=== PATIENT | male | born 1985 | race Caucasian/White ===

== ENCOUNTER 2016-09-19 17:13 | Emergency (ER) | payer SELFPAY ==
[2016-09-19] MEDS ORDERED: Sodium Chloride 0.9% 2.5 ML Syringe FLUSH PRN (17:42)
[2016-09-19] MEDS ORDERED: Ketorolac 30 MG/ML SDV IVPUSH ONE (17:42)
[2016-09-19] MEDS ORDERED: Sodium Chloride 0.9% 10 ML Syringe FLUSH PRN (17:42)
[2016-09-19] MEDS ORDERED: Ondansetron 4 MG/2 ML SDV IVPUSH ONE (17:42)
[2016-09-19] MEDS ORDERED: Sodium Chloride 0.9% 1,000 ML IV SCH ×2 (18:00)
[2016-09-19 18:18] LABS: CHLORIDE,CL 103 mmol/L (98-110); SODIUM,NA 137 mmol/L (136-146)
[2016-09-19] MEDS ORDERED: fentaNYL 100 MCG/2 ML SDV IVPUSH ONE (18:23)
--- NOTE | 2016-09-19 19:09 | EDM.PDOC ---
ED HPI GENERAL MEDICAL PROBLEM - General Chief Complaint: Behavioral/Psych Stated Complaint: DETOX Time Seen by Provider: 09/19/16 17:45 Source of Information: Reports: Patient, Family History Limitations: Reports: No limitations - History of Present Illness INITIAL COMMENTS - FREE TEXT/NARRATIVE: History of present illness: [30 year old male presenting with concerns of withdrawing from alcohol. Patient acknowledges that he drinks anywhere from 14-20 shots today which consists of consuming 2 L of [place] every 4 days if not sooner. Patient said he attempted to withdraw on his own but started feeling "not right in the head, shaky, and nauseated."] Review of systems: As per history of present illness and below otherwise all systems reviewed and negative. Past medical history: As per history of present illness and as reviewed below otherwise noncontributory. Surgical history: As per history of present illness and as reviewed below otherwise noncontributory. Social history: No reported history of drug or alcohol abuse. Family history: As per history of present illness and as reviewed below otherwise noncontributory. Physical exam: HEENT: Atraumatic, normocephalic, pupils reactive, negative for conjunctival pallor or scleral icterus, mucous membranes moist, throat clear, neck supple, nontender, trachea midline. Lungs: Clear to auscultation, breath sounds equal bilaterally, chest nontender. Heart: S1S2, regular, negative for clicks, rubs, or JVD. Abdomen: Soft, nondistended, nontender. Negative for masses or hepatosplenomegaly. Negative for costovertebral tenderness. Pelvis: Stable nontender. Genitourinary: Deferred. Rectal: Deferred. Extremities: Atraumatic, negative for cords or calf pain. Neurovascular unremarkable. Neuro: Awake, alert, oriented. Cranial nerves II through XII unremarkable. Cerebellum unremarkable. Motor and sensory unremarkable throughout. Exam nonfocal. Patient's presentation at this juncture is stable. He is not presenting with any nature of hallucinations, he is not tremulous to the point of concern or affecting his gait. There is no significant appreciable nystagmus. Patient's EtOH level is less than 10 per lab. Discussed plan of care with patient and the resources at [facility] outpatient/ inpatient treatment. Patient and both verbalized an intense interest in contacting [facility] and arranging inpatient detox as soon as this evening or tomorrow. Resources will be given at discharge. Will also give patient in brief run of Ativan as well as terminal outpatient one for withdrawal signs and symptoms and the other for the chronic back pain history with that has led to him self-medicating with alcohol. Diagnostics: [CBC, CMP, EtOH, amylase, lipase ] Therapeutics: [IV fluid, fentanyl, Toradol, ] Impression: [ETOH abuse] Plan: [] Definitive disposition and diagnosis as appropriate pending reevaluation and review of above. back Pain Score (Numeric/FACES): 8 - Related Data Allergies Allergy/AdvReac Type Severity Reaction Status Date / Time No Known Allergies Allergy Verified 09/19/16 17:22 Home Meds: Home Meds . [No Known Home Meds] 06/28/16 [History] Past Medical History Respiratory History: Reports: Pneumonia, recurrent Gastrointestinal History: Reports: Pancreatitis Genitourinary History: Reports: Renal calculus Neurological History: Reports: Seizure Social & Family History - Family History Family Medical History: Noncontributory - Tobacco Use Smoking Status *Q: Current Every Day Smoker Years of Tobacco use: 7 Packs/Tins Daily: 1 - Alcohol Use Days Per Week of Alcohol Use: 7 Number of Drinks Per Day: 5 Total Drinks Per Week: 35 - Recreational Drug Use Recreational Drug Use: No ED ROS GENERAL - Review of Systems Review Of Systems: See Below (See history of present illness) ED EXAM, GENERAL - Physical Exam Exam: See Below (See history of present illness) Course - Vital Signs Last Recorded V/S: Last Vital Signs Temp 36.8 C 09/19/16 17:22 Pulse 95 09/19/16 18:17 Resp 20 09/19/16 18:17 BP 135/95 H 09/19/16 18:17 Pulse Ox 99 09/19/16 18:17 - Orders/Labs/Meds Orders: Active Orders 24 hr Category Date Time Status Sodium Chloride 0.9% [Normal Saline] 1,000 ml Med 09/19/16 18:00 Active IV ASDIRECTED Sodium Chloride 0.9% [Normal Saline] 1,000 ml Med 09/19/16 18:00 Active IV STAT Sodium Chloride 0.9% [Saline Flush] Med 09/19/16 17:42 Active 10 ml FLUSH ASDIRECTED PRN Sodium Chloride 0.9% [Saline Flush] Med 09/19/16 17:42 Active 2.5 ml FLUSH ASDIRECTED PRN Saline Lock Insert [OM.PC] Stat Oth 09/19/16 17:42 Ordered Medication Orders Sodium Chloride (Normal Saline) 1,000 mls @ 999 mls/hr IV ASDIRECTED FUNMI Last Admin: 09/19/16 17:54 Dose: 999 mls/hr Sodium Chloride (Normal Saline) 1,000 mls @ 125 mls/hr IV STAT [facility] Sodium Chloride (Saline Flush) 10 ml FLUSH ASDIRECTED PRN PRN Reason: Keep Vein Open Last Admin: 09/19/16 17:50 Dose: 10 ml Sodium Chloride (Saline Flush) 2.5 ml FLUSH ASDIRECTED PRN PRN Reason: Keep Vein Open Last Admin: 09/19/16 17:50 Dose: 2.5 ml Labs: Laboratory Tests 09/19/16 09/19/16 Range/Units 17:49 17:49 WBC 5.21 (4.0-11.0) K/uL RBC 4.17 L (4.50-5.90) M/uL Hgb 16.4 (13.0-17.0) g/dL Hct 44.8 (38.0-50.0) % MCV 107.4 H (80.0-98.0) fL MCH 39.3 H (27.0-32.0) pg MCHC 36.6 (31.0-37.0) g/dL RDW Std Deviation 41.3 (28.0-62.0) fl RDW Coeff of Zeynep 11 (11.0-15.0) % Plt Count 146 L (150-400) K/uL MPV 9.20 (7.40-12.00) fL Add Manual Diff YES Neutrophils % (Manual) 62 (48.0-80.0) % Band Neutrophils % 3 % Lymphocytes % (Manual) 24 (16.0-40.0) % Monocytes % (Manual) 10 (0.0-15.0) % Eosinophils % (Manual) 1 (0.0-7.0) % Absolute Seg Neuts 3.2 Band Neutrophils # 0.2 Lymphocytes # (Manual) 1.3 Monocytes # (Manual) 0.5 Eosinophils # (Manual) 0.1 Reactive Lymphocytes FEW Sodium 137 (136-146) mmol/L Potassium 3.7 (3.5-5.1) mmol/L Chloride 103 (98-110) mmol/L Carbon Dioxide 22 (21-31) mmol/L BUN 10 (6.0-23.0) mg/dL Creatinine 0.8 (0.6-1.5) mg/dL Est Cr Clr Drug Dosing 123.94 mL/min Estimated GFR (MDRD) > 60.0 ml/min Glucose 105 (60-110) mg/dL Calcium 9.6 (8.8-10.8) mg/dL Total Bilirubin 1.0 (0.1-1.5) mg/dL AST 329 H (5-40) IU/L ALT 256 H (8-54) IU/L Alkaline Phosphatase 102 (40-150) Total Protein 7.6 (6.0-8.0) g/dL Albumin 4.7 (3.5-5.0) g/dL Globulin 2.9 (2.0-3.5) g/dL Albumin/Globulin Ratio 1.6 (1.3-2.8) Amylase 64 (10-90) U/L Lipase 45 (7-80) U/L Ethyl Alcohol < 10.0 mg/dL Meds: Medications Generic Name Dose Route Start Last Admin Trade Name Freq PRN Reason Stop Dose Admin Sodium Chloride 1,000 mls @ 999 mls/hr 09/19/16 18:00 09/19/16 17:54 Normal Saline IV 999 mls/hr ASDIRECTED FUNMI Administration Sodium Chloride 1,000 mls @ 125 mls/hr 09/19/16 18:00 Normal Saline IV STAT FUNMI Sodium Chloride 10 ml 09/19/16 17:42 09/19/16 17:50 Saline Flush FLUSH 10 ml ASDIRECTED PRN Administration Keep Vein Open Sodium Chloride 2.5 ml 09/19/16 17:42 09/19/16 17:50 Saline Flush FLUSH 2.5 ml ASDIRECTED PRN Administration Keep Vein Open Discontinued Medications Generic Name Dose Route Start Last Admin Trade Name Freq PRN Reason Stop Dose Admin Fentanyl 50 mcg 09/19/16 18:23 09/19/16 18:42 Sublimaze IVPUSH 09/19/16 18:24 50 mcg ONETIME ONE Administration Ketorolac Tromethamine 30 mg 09/19/16 17:42 09/19/16 17:50 Toradol IVPUSH 09/19/16 17:43 30 mg ONETIME ONE Administration Ondansetron HCl 4 mg 09/19/16 17:42 09/19/16 17:50 Zofran IVPUSH 09/19/16 17:43 4 mg ONETIME ONE Administration Departure - Departure Time of Disposition: 19:10 Disposition: Home, Self-Care 01 Condition: good Clinical Impression: Alcohol abuse Forms: ED Department Discharge Additional Instructions: The following information is given to patients seen in the emergency department who are being discharged to home. This information is to outline your options for follow-up care. We provide all patients seen in our emergency department with a follow-up referral. The need for follow-up, as well as the timing and circumstances, are variable depending upon the specifics of your emergency department visit. If you don't have a primary care physician on staff, we will provide you with a referral. We always advise you to contact your personal physician following an emergency department visit to inform them of the circumstance of the visit and for follow-up with them and/or the need for any referrals to a consulting specialist. The emergency department will also refer you to a specialist when appropriate. This referral assures that you have the opportunity for follow-up care with a specialist. All of these measure are taken in an effort to provide you with optimal care, which includes your follow-up. Under all circumstances we always encourage you to contact your private physician who remains a resource for coordinating your care. When calling for follow-up care, please make the office aware that this follow-up is from your recent emergency room visit. If for any reason you are refused follow-up, please contact the [facility] Emergency Department at and asked to speak to the emergency department charge nurse. You've been provided outpatient documentation and resources to [facility] for potential inpatient rehabilitation please call them and arrange treatment as desired and as able. Otherwise over your primary care provider one to 2 days ED as needed as discussed - My Orders Last 24 Hours: My Active Orders 09/19/16 17:42 Sodium Chloride 0.9% [Saline Flush] 10 ml FLUSH ASDIRECTED PRN Sodium Chloride 0.9% [Saline Flush] 2.5 ml FLUSH ASDIRECTED PRN Saline Lock Insert [OM.PC] Stat 09/19/16 18:00 Sodium Chloride 0.9% [Normal Saline] 1,000 ml IV ASDIRECTED Sodium Chloride 0.9% [Normal Saline] 1,000 ml IV STAT - Assessment/Plan Last 24 Hours: My Active Orders 09/19/16 17:42 Sodium Chloride 0.9% [Saline Flush] 10 ml FLUSH ASDIRECTED PRN Sodium Chloride 0.9% [Saline Flush] 2.5 ml FLUSH ASDIRECTED PRN Saline Lock Insert [OM.PC] Stat 09/19/16 18:00 Sodium Chloride 0.9% [Normal Saline] 1,000 ml IV ASDIRECTED Sodium Chloride 0.9% [Normal Saline] 1,000 ml IV STAT
[2016-09-19 19:29] VITALS: BP 147/94
== END 2016-09-19 19:30 | disposition home or self-care (01) ==
LOC: MW.ED 17:13
DX: F10.10 Alcohol abuse, uncomplicated (principal); F17.210 Nicotine dependence, cigarettes, uncomplicated; Y90.0 Blood alcohol level of less than 20 mg/100 ml
CPT/HCPCS: 36415; 80053; 82150; 83690; 85025; 96361; 96374; 96375; 99285; G0480; J1885; J2405; J3010; J7040; 99284

== ENCOUNTER → 2016-10-08 | Outpatient (CLI) | payer OTHER ==
[2016-10-08 11:17] LABS: CHLORIDE,CL 107 mmol/L (98-110); SODIUM,NA 145 mmol/L (136-146)
[2016-10-08 11:36] LABS: HIV12 AG/AB 4TH GEN W/REFLEX 0.1 (<1.0)
== END ==
LOC: MERGE 10:32 → MW.CHIM 10:32
PROVIDERS: ATTEND Internal Medicine
DX: R74.0 Nonspecific elevation of levels of transaminase and lactic acid dehydrogenase [LDH] (principal)
CPT/HCPCS: 36415; 80053; 86707; 86803; 87389

== ENCOUNTER 2016-10-18 13:16 | Emergency (ER) | payer OTHER ==
[~2016-10-18 13:16] MED LIST: EPINEPHrine 1:1000 1 MG/1 ML Amp IVPUSH ONE; Naloxone 0.4 MG/ML Syringe ONE; Sodium Bicarbonate 8.4% 50 MEQ/50 ML Syringe IVPUSH ONE; Sodium Chloride 0.9% 1,000 ML IV SCH
[2016-10-18] MEDS ORDERED: EPINEPHrine 1:1000 1 MG/1 ML Amp IVPUSH ONE (13:18)
--- NOTE | 2016-10-18 13:26 | EDM.PDOC ---
ED HPI GENERAL MEDICAL PROBLEM - General Stated Complaint: UNK Time Seen by Provider: 10/18/16 13:22 - History of Present Illness INITIAL COMMENTS - FREE TEXT/NARRATIVE: HISTORY AND PHYSICAL: History of present illness: Patient 31-year-old white male presents status post cardiac arrest in which he had an unknown down time with a systolic in the field had a brief return of pulse subsequently lost and brought here a systolic cyanotic with acute airway upon arrival here was removed patient was intubated by myself with an 8-old ET tube right femoral line was placed by myself ACLS protocol was continued patient remained asystolic and pulseless throughout resuscitation breath sounds remained equal bilaterally throughout resuscitation abdomen was nondistended chest was atraumatic neurologically fixed and dilated Patient was pronounced at 1319 by myself please see nursing notes and code sheet for details Diagnostics: None Therapeutics: Right femoral line in, left subclavian line, endotracheal intubation Impression: #1 cardiopulmonary arrest etiology to be determined Definitive disposition and diagnosis as appropriate pending reevaluation and review of above. - Related Data Allergies Allergy/AdvReac Type Severity Reaction Status Date / Time No Known Allergies Allergy Verified 09/19/16 17:22 Home Meds: Home Meds . [No Known Home Meds] 06/28/16 [History] Past Medical History Respiratory History: Reports: Pneumonia, recurrent Gastrointestinal History: Reports: Pancreatitis Genitourinary History: Reports: Renal calculus Neurological History: Reports: Seizure Social & Family History - Family History Family Medical History: Noncontributory - Tobacco Use Smoking Status *Q: Current Every Day Smoker Years of Tobacco use: 7 Packs/Tins Daily: 1 - Alcohol Use Days Per Week of Alcohol Use: 7 Number of Drinks Per Day: 5 Total Drinks Per Week: 35 - Recreational Drug Use Recreational Drug Use: No ED ROS GENERAL - Review of Systems Review Of Systems: See Below (Not applicable) ED EXAM, GENERAL - Physical Exam Exam: See Below (See history and physical) Departure - Departure Time of Disposition: 13:26 Disposition: 20 Preliminary Cause of *Q: Cardiac arrest Condition: critical, undetermined Clinical Impression: Cardiopulmonary arrest
[2016-10-18] MEDS ORDERED: Sodium Bicarbonate 8.4% 50 MEQ/50 ML Syringe IV ONE (15:49)
[2016-10-18] MEDS ORDERED: 25% Dextrose in Water 10 ML Syringe IV ONE (15:49)
[2016-10-18] MEDS ORDERED: EPINEPHrine 1:10,000 1 MG/10 ML Syringe IV ONE (15:49)
[2016-10-18 20:00] VITALS: BP 222/151
[2016-10-18] MEDS ORDERED: Sodium Bicarbonate 8.4% 50 MEQ/50 ML Syringe IVPUSH ONE (20:22)
== END 2016-10-18 15:48 | disposition expired ==
LOC: MW.ED 13:16
DX: I46.9 Cardiac arrest, cause unspecified (principal); F17.210 Nicotine dependence, cigarettes, uncomplicated; Z87.01 Personal history of pneumonia (recurrent)
CPT/HCPCS: 31500; 80305; 81001; 86803; 87340; 87389; 92950; 99285; G0480; J0171; J7040; 36415; 99283